=== PATIENT | female | born 1995 | race Caucasian/White ===

== ENCOUNTER 2018-09-29 08:53 | Inpatient (IN) | payer OTHER ==
[2018-09-29] VITALS (20 sets, daily range): BP systolic 96–137; BP diastolic 51–73; PULSE 70–86; RESP 8–21; Ht 157.5 cm; Wt 86.3 kg
[~2018-09-29] VITALS: Ht 157.5 cm; Wt 86.3 kg
[2018-09-29] MEDS ORDERED: ALBU18HF INH (09:30)
[2018-09-29] MEDS ORDERED: CLOB15OI15 TOP (09:30)
[2018-09-29] MEDS ORDERED: CEFAZOLIN 2 GM/50 ML (PMX) 50 ML IVPB ONE (10:00)
[2018-09-29] MEDS ORDERED: SOD CHLORIDE 0.9% 1,000 ML IV ONE (10:00)
--- NOTE | 2018-09-29 12:18 | PREAC ---
Date/Time of Note Date/Time of Note DATE: 09/29/18 TIME: 12:17 Anesthesia Eval and Record Evaluation Time Pre-Procedure Interview DATE: 09/29/18 TIME: 12:17 Age 22 Sex female NPO: 8 hrs Preoperative diagnosis papillary thyroid CA Planned procedure total thyroidectomy Past Medical History Past Medical History: Includes Pulm: Asthma GI: Obesity Surgery & Anesthesia Issues No known issue Meds Anticoagulation: No Beta Otto within 24 hr: No Reason Beta Otto not given: Pt. not on B-Otto Reported Medications Clobetasol Propionate* (Clobetasol Propionate*) 15 Gm Oint, 1 APPLIC TOP PRN, #1 TUB 09/29/18 Albuterol Sulfate* (Ventolin HFA*) 18 Gm Hfa.aer.ad, 2 PUFFS INH Q6 PRN for SHORTNESS OF BREATH 09/29/18 Current Medications Sodium Chloride 1,000 ml @ 75 mls/hr [id number] ONCE IV ; Start 09/29/18 at 10:00; Stop 09/29/18 at 23:19 Meds reviewed: Yes Allergies Coded Allergies: No Known Allergy (Unverified , 09/29/18) Allergies Reviewed: Yes Labs/Studies Labs Reviewed: Reviewed by anesthesiologist test: Negative Pre-procedure Exam Last vitals Vital Signs Date Temp Pulse Resp B/P (MAP) Pulse Ox O2 O2 Flow FiO2 Time Delivery Rate 09/29/18 97.5 73 18 111/73 96 Room Air 10:27 (86) Airway: Adequate mouth opening, Adequate thyromental dist Mallampati: Mallampati II Teeth: Normal Lung: Normal Heart: Normal ASA Physical Status ASA physical status: 2 Emergency: None Planned Anesthetic General/MAC: ETT Pre-operative Attestations Prior to commencing anesthesia and surgery, the patient was re-evaluated, there was verification of: *The patient's identity *The results of appropriate recent lab work and preoperative vital signs *The above evaluation not changing prior to induction *Anesthetic plan, risk benefits, alternative and complications discussed with patient/family; questions answered; patient/family understands, accepts and wishes to proceed. HECTOR RIVERA Sep 29, 2018 12:18
[2018-09-29] MEDS ORDERED: BUPIVACAINE 0.25% (MPF) 30 ML INJ ONE (12:24)
[2018-09-29] MEDS ORDERED: ONDANSETRON 4 MG INJ IV PRN ×2 (12:30→16:30)
[2018-09-29] MEDS ORDERED: METOCLOPRAMIDE 10 MG INJ IV PRN (12:30)
[2018-09-29] MEDS ORDERED: ALBUTEROL 0.083% (NEB) 2.5 MG/3 ML AMP HHN PRN (12:30)
[2018-09-29] MEDS ORDERED: FENTAnyl 50 MCG/ML VIAL IV PRN ×3 (12:30)
[2018-09-29] MEDS ORDERED: DIPHENHYDRAMINE 50 MG INJ IV PRN (12:30)
[2018-09-29] MEDS ORDERED: MEPERIDINE 25 MG INJ IV PRN (12:30)
[2018-09-29] MEDS ORDERED: HYDROmorphONE 1 MG/5 ML IV SYRINGE IV PRN ×3 (12:30)
[2018-09-29] MEDS ORDERED: LIDOCAINE 2% (SDV) 5 ML INJ ONE (12:59)
[2018-09-29] MEDS ORDERED: GLYCOPYRROLATE 0.4 MG INJ ONE (12:59)
[2018-09-29] MEDS ORDERED: SUCCINYLCHOLINE CHLORIDE 100 MG/5 ML SYG IV ONE (12:59)
[2018-09-29] MEDS ORDERED: FENTAnyl 50 MCG/ML VIAL ONE (12:59)
[2018-09-29] MEDS ORDERED: ROCURONIUM 50 MG INJ ONE (14:13)
[2018-09-29] MEDS ORDERED: PROPOFOL 20 ML ONE (14:13)
[2018-09-29] MEDS ORDERED: CEFAZOLIN 1 GM INJ ONE (14:13)
[2018-09-29] MEDS ORDERED: SUGAMMADEX SODIUM 200 MG/2 ML VIAL IV ONE (14:13)
--- NOTE | 2018-09-29 14:29 | OPR ---
Date/Time of Note Date/Time of Note DATE: 09/29/18 TIME: 14:21 Operative Report Procedure Date: Sep 29, 2018 Preoperative Diagnosis thyroid papillary cancer Postoperative Diagnosis same Operation/Procedure Performed 1. 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 localized adjacent tissue transfer with the use of skin flasp 18 sq cm defect of anterior neck 3. therapeutic injection of subcutaneous local anesthesia Surgeon see signature line Front Edger Jonah Rashid Anesthesia Type: general Estimated Blood Loss: 0 - 10 ml's Transfusion none Specimen total thyroid single short right superior double short right lower single long left upper double long left lower Grafts/Implants none Complications none Pt Condition Post Procedure: stable Indications This is a 22-year-old female diagnosed on FNA to the papillary thyroid cancer on the left thyroid nodule. Additionally she has multiple autoimmune diseases including psoriasis and Madai's disease. She is brought to the OR for a total thyroidectomy. Risks alternatives benefits and personal were discussed the patient. Additionally because of her autoimmune disease and high inflammation rate she was told of her increased risk of perioperative morbidity including but not limited to bleeding infection recurrent laryngeal nerve in jury. She expressed understanding and consents to the operation. Procedure Description Patient taken to the OR and prepped and draped in usual sterile fashion. Surgical time was performed. IV antibiotics given. Collar incision was made with a 15 blade. Dissection with cautery was carried through the platysmal muscle. Immediately there was a higher level inflammation in the tissue planes were difficult due to her autoimmune disease of psoriasis and Madai's in particular peak. Due to the Madai's technical access to the thyroid was much more difficult and the dissection was difficult throughout the case and hence this should qualify for a modifier 22. Platysmal flaps were raised superiorly inferiorly and dissection was taken with cautery. Gaitan retractors were placed. The strap muscles were adherent and inflamed.. The strap muscle was divided in the midline and reflected to the left and right again the tissue planes were difficult due to the high inflammation and meticulous dissection was required to take the strap muscles off of the anterior portion of the thyroid tissue. This was done layer by layer in a meticulous fashion. Attention was then paid to the right thyroid lobe. Again here the tissue planes were difficult to dissect out due to the high inflammation and autoimmune disease of Madai's thyroiditis. The right superior pole and right inferior pole was mobilized. LigaSure was used to dissect out and divided the middle thyroid vein. Further dissection was carried out. Due to the high inflammation a subcapsular approach was taken as the thyroid nodule was on the left side. This area was then and reflected anteriorly and taken off the trachea. The retro-is small space was also dissected out bluntly using tonsils and again here meticulous dissection was required and higher level of bleeding was seen in the normal due to the autoimmune inflammation from Madai's disease. Further dissection was carried on the left side. The strap muscles were meticulously reflected off of the thyroid tissue. The nodule was palpable. The superior and inferior poles were identified and mobilized. The left middle thyroidal vein was ligated with handheld LigaSure. Meticulous reflection was performed as the thyroid was elongated in a lateral position and almost into the tracheoesophageal groove. Further dissection was performed and the thyroid was mobilized immediately. Even the dissection off the trachea was difficult as there was an extensive amount of adhesions. This was finally reflected completely off and the thyroid was marked with surgical markings of single short right superior double short right inferior single long left superior double long left inferior. The thyroid specimen was sent. There is no evidence of any central nodes that needed dissection. The surgical site was irrigated with water and a Valsalva maneuver of 40 cm of water was performed. No evidence of any bleeding was seen and irrigation was suctioned out. The strap muscles were then reapproximated the midline with interrupted 3-0 Vicryl. The platysmal superior and inferior flaps by using localization to his transfer with these of skin flaps was closed with interrupted 3-0 Vicryl. Multilayer fashion closure was then performed the skin with interrupted 3-0 Vicryl and running 4-0 Monocryl. Therapeutic subcutaneous local anesthesia was injected throughout the incision site. Dry dressings and Steri-Strips were applied. Abdias SAMAYOA Sep 29, 2018 14:29
[2018-09-29] MEDS ORDERED: HYDROCODONE/APAP (5/325) TAB PO PRN (14:30)
[2018-09-29] MEDS ORDERED: morphine 2 MG INJ IV PRN (14:30)
[2018-09-29] MEDS ORDERED: CEFAZOLIN 2 GM/50 ML (PMX) 50 ML IVPB SCH (14:30)
--- NOTE | 2018-09-29 16:19 | HP ---
Date/Time of Note Date/Time of Note DATE: 09/29/18 TIME: 16:15 Assessment/Plan VTE Prophylaxis SCD applied (from Nsg): Yes Pharmacological prophylaxis: NA/contraindicated Pharm contraindication: surgical contra Lines/Catheters IV Catheter Type (from Nrsg): Saline Lock Assessment/Plan Assessment/Plan -Thyroid papillary cancer, status post total thyroidectomy by Dr. Najera on 09/29/2018. Continue IV fluids and postoperative antibiotic. Continue morphine as needed for pain and Zofran as needed for nausea. Advance diet per surgery. -Madai's thyroiditis -Asthma, albuterol as needed -Psoriasis -Obesity with BMI of 34.8 Further recommendations based on clinical course. Plan of care discussed with Dr. Mendoza. Result Diagram: 09/29/18 1449 09/29/18 1449 Results 24hrs Laboratory Tests Test 09/29/18 14:49 White Blood Count 7.0 Red Blood Count 4.34 Hemoglobin 13.0 Hematocrit 39.4 Mean Corpuscular Volume 90.8 Mean Corpuscular Hemoglobin 30.0 Mean Corpuscular Hemoglobin Concent 33.0 Red Cell Distribution Width 13.0 Platelet Count 301 Mean Platelet Volume 9.4 Immature Granulocytes % 0.300 Neutrophils % 41.7 Lymphocytes % 46.8 Monocytes % 6.6 Eosinophils % 3.9 Basophils % 0.7 Nucleated Red Blood Cells % 0.0 Immature Granulocytes # 0.020 Neutrophils # 2.9 Lymphocytes # 3.3 H Monocytes # 0.5 Eosinophils # 0.3 Basophils # 0.1 Nucleated Red Blood Cells # 0.0 Sodium Level 141 Potassium Level 3.9 Chloride Level 112 H Carbon Dioxide Level 21 Anion Gap 8 Blood Urea Nitrogen 7 Creatinine 0.65 Est Glomerular Filtrat Rate mL/min > 60 Glucose Level 109 Calcium Level 8.5 Total Bilirubin 0.4 Direct Bilirubin 0.00 Indirect Bilirubin 0.4 Aspartate Amino Transf (AST/SGOT) 28 Alanine Aminotransferase (ALT/SGPT) 31 Alkaline Phosphatase 56 Total Protein 6.6 Albumin 3.6 Globulin 3.00 Albumin/Globulin Ratio 1.20 HPI/ROS Admit Date/Time Admit Date/Time Sep 29, 2018 at 08:53 Hx of Present Illness Patient is 22-year-old female with history of Madai's thyroiditis, asthma, psoriasis, eczema and arthritis. Patient was evaluated for enlarged left thyroid nodule and underwent FNA at which revealed papillary thyroid cancer. Patient was evaluated by Dr. Najera and surgical consultation. Patient was brought to the hospital and underwent total thyroidectomy today. Postoperatively patient experiencing significant pain and nausea. Patient is admitted for further evaluation and management. ROS 12 point review of system is negative except for what mentioned in HPI PMH/Family/Social Past Medical History Medical History: other (Madai's thyroiditis, asthma, psoriasis) Medications Current Medications Hydromorphone HCl (Dilaudid) 0.2 mg PACU PRN IV MILD PAIN 1-3; Start 09/29/18 at 12:30; Stop 09/29/18 at 17:00 Hydromorphone HCl (Dilaudid) 0.4 mg PACU PRN IV MOD PAIN 4-6; Start 09/29/18 at 12:30; Stop 09/29/18 at 17:00 Hydromorphone HCl (Dilaudid) 0.6 mg PACU PRN IV SEVERE PAIN 7-10; Start 09/29/18 at 12:30; Stop 09/29/18 at 17:00 Fentanyl (Sublimaze) 25 mcg PACU ORDER PRN IV MILD PAIN 1-3; Start 09/29/18 at 12:30; Stop 09/29/18 at 17:00 Fentanyl (Sublimaze) 50 mcg PACU ORDER PRN IV MOD PAIN 4-6; Start 09/29/18 at 12:30; Stop 09/29/18 at 17:00 Fentanyl (Sublimaze) 75 mcg PACU ORDER PRN IV SEVERE PAIN 7-10; Start 09/29/18 at 12:30; Stop 09/29/18 at 17:00 Ondansetron HCl (Zofran Inj) 4 mg PACU ORDER PRN IV NAUSEA/VOMITING; Start 09/29/18 at 12:30; Stop 09/29/18 at 17:00 Metoclopramide HCl (Reglan) 10 mg PACU ORDER PRN IV NAUSEA/VOMITING; Start 09/29/18 at 12:30; Stop 09/29/18 at 17:00 Albuterol (Proventil 0.083% (Neb)) 2.5 mg PACU ORDER PRN HHN .WHEEZING; Start 09/29/18 at 12:30; Stop 09/29/18 at 17:00 Meperidine HCl (Demerol) 25 mg PACU ORDER PRN IV .RIGORS; Start 09/29/18 at 12:30; Stop 09/29/18 at 17:00 Diphenhydramine HCl (Benadryl) 25 mg PACU ORDER PRN IV .PRURITUS; Start 09/29/18 at 12:30; Stop 09/29/18 at 17:00 Cefazolin Sodium/ Dextrose 50 ml @ 100 mls/hr Q8H IVPB ; Start 09/29/18 at 14:30; Stop 09/30/18 at 14:29 Morphine Sulfate (morphine) 2 mg Q2H PRN IV PAIN LEVEL 6-10; Start 09/29/18 at 14:30 Acetaminophen/ Hydrocodone Bitart ([place] (5/325)) 1 tab Q6H PRN PO PAIN LEVEL 6-10; Start 09/29/18 at 14:30 Lactated Ringer's 1,000 ml @ 100 mls/hr Q10H IV ; Start 09/29/18 at 14:19 Coded Allergies: No Known Allergy (Unverified , 09/29/18) Past Surgical History Past Surgical Hx: no surgical history Family History Significant Family History: cancer (Breast cancer in patient's mother) Social History Alcohol Use: none Smoking Status: Never smoker Drug Use: none Exam/Review of Systems Vital Signs Vitals Vital Signs Date Temp Pulse Resp B/P (MAP) Pulse Ox O2 O2 Flow FiO2 Time Delivery Rate 09/29/18 98.0 14:43 09/29/18 73 18 111/73 96 Room Air 10:27 (86) Exam Constitutional: alert, oriented Head: normocephalic Neck: other (Status post surgery) Respiratory: clear to auscultation Cardiovascular: nl pulses Gastrointestinal: soft, non-tender Musculoskeletal: nl extremities to inspection Extremities: normal pulses GEORGE TURNER Sep 29, 2018 16:19
[2018-09-29] MEDS: LACTATED RINGER'S 1,000 ML IV SCH (16:21)
[2018-09-29] MEDS ORDERED: ALBUTEROL/IPRATROPIUM (NEB) 3 ML AMP HHN PRN (16:30)
[2018-09-29] MEDS: CEFAZOLIN 2 GM/50 ML (PMX) 50 ML IVPB SCH (21:29)
[2018-09-30 00:04] VITALS: BP 99/55; PULSE 84; RESP 18
[2018-09-30] MEDS ORDERED: CALCIUM CARBONATE 1.25 GM TAB PO ONE (02:30)
[2018-09-30] MEDS ORDERED: CA CARBONATE (250 MG/ML PO SYG) PO ONE (03:00)
[2018-09-30] MEDS: LACTATED RINGER'S 1,000 ML IV SCH ×2 (03:10→10:19)
[2018-09-30] MEDS: CEFAZOLIN 2 GM/50 ML (PMX) 50 ML IVPB SCH ×2 (05:32→14:29)
[2018-09-30 07:19] VITALS: BP 98/58; PULSE 78; RESP 20
--- NOTE | 2018-09-30 07:19 | PAC ---
Date/Time of Note Date/Time of Note DATE: 09/30/18 TIME: 07:19 Post-Anesthesia Notes Post-Anesthesia Note Last documented vital signs Vital Signs Date Temp Pulse Resp B/P (MAP) Pulse Ox O2 O2 Flow FiO2 Time Delivery Rate 09/30/18 95 21 02:49 09/30/18 98.1 84 18 99/55 (70) Room Air 00:04 09/29/18 8.0 14:47 Activity: WNL Respiratory function: WNL Cardiovascular function: WNL Mental status: Baseline Pain reasonably controlled: Yes Hydration appropriate: Yes Nausea/Vomiting absent: Yes HECTOR RIVERA Sep 30, 2018 07:19
--- NOTE | 2018-09-30 10:26 | PN ---
Date/Time of Note Date/Time of Note DATE: 09/30/18 TIME: 10:25 Assessment/Plan VTE Prophylaxis Risk score (from Ns)>0 risk: 4 SCD applied (from Ns): Yes Pharmacological prophylaxis: other Lines/Catheters IV Catheter Type (from [facility]): Peripheral IV Urinary Cath still in place: No Assessment/Plan Assessment/Plan s/p total thyroidectomy doing well dc home Result Diagram: 09/30/18 0446 09/30/18 0446 Results 24hrs Laboratory Tests Test 09/29/18 14:49 09/30/18 01:19 09/30/18 04:46 White Blood Count 7.0 10.4 # Red Blood Count 4.34 4.19 L Hemoglobin 13.0 12.6 Hematocrit 39.4 38.1 Mean Corpuscular Volume 90.8 90.9 Mean Corpuscular Hemoglobin 30.0 30.1 Mean Corpuscular Hemoglobin Concent 33.0 33.1 Red Cell Distribution Width 13.0 13.2 Platelet Count 301 316 Mean Platelet Volume 9.4 9.7 Immature Granulocytes % 0.300 0.200 Neutrophils % 41.7 66.3 Lymphocytes % 46.8 25.4 Monocytes % 6.6 6.6 Eosinophils % 3.9 1.0 Basophils % 0.7 0.5 Nucleated Red Blood Cells % 0.0 0.0 Immature Granulocytes # 0.020 0.020 Neutrophils # 2.9 6.9 Lymphocytes # 3.3 H 2.6 Monocytes # 0.5 0.7 Eosinophils # 0.3 0.1 Basophils # 0.1 0.1 Nucleated Red Blood Cells # 0.0 0.0 Sodium Level 141 139 Potassium Level 3.9 3.6 Chloride Level 112 H 107 Carbon Dioxide Level 21 26 Anion Gap 8 6 Blood Urea Nitrogen 7 6 L Creatinine 0.65 0.68 Est Glomerular Filtrat Rate mL/min > 60 > 60 Glucose Level 109 91 Calcium Level 8.5 8.1 L 8.1 L Total Bilirubin 0.4 0.5 Direct Bilirubin 0.00 0.00 Indirect Bilirubin 0.4 0.5 Aspartate Amino Transf (AST/SGOT) 28 41 Alanine Aminotransferase (ALT/SGPT) 31 29 Alkaline Phosphatase 56 48 Total Protein 6.6 6.6 Albumin 3.6 3.5 Globulin 3.00 3.10 Albumin/Globulin Ratio 1.20 1.12 Subjective 24 Hr Interval Summary Free Text/Dictation patient doing well, had some tingling in the hands and calcium was started now those symptoms have resolved Exam/Review of Systems Exam Vitals Vital Signs Date Temp Pulse Resp B/P (MAP) Pulse Ox O2 O2 Flow FiO2 Time Delivery Rate 09/30/18 98.1 78 20 98/58 (71) 98 07:19 09/30/18 21 02:49 09/30/18 Room Air 00:04 09/29/18 8.0 14:47 Intake and Output 09/29/18 09/29/18 09/30/18 1515:00 23:00 07:00 IntakeIntake Total 1100 ml 490 ml 1650 ml OutputOutput Total 10 ml BalanceBalance 1090 ml 490 ml 1650 ml Exam c/d/i Results Results 24hrs Laboratory Tests Test 09/29/18 14:49 09/30/18 01:19 09/30/18 04:46 White Blood Count 7.0 10.4 # Red Blood Count 4.34 4.19 L Hemoglobin 13.0 12.6 Hematocrit 39.4 38.1 Mean Corpuscular Volume 90.8 90.9 Mean Corpuscular Hemoglobin 30.0 30.1 Mean Corpuscular Hemoglobin Concent 33.0 33.1 Red Cell Distribution Width 13.0 13.2 Platelet Count 301 316 Mean Platelet Volume 9.4 9.7 Immature Granulocytes % 0.300 0.200 Neutrophils % 41.7 66.3 Lymphocytes % 46.8 25.4 Monocytes % 6.6 6.6 Eosinophils % 3.9 1.0 Basophils % 0.7 0.5 Nucleated Red Blood Cells % 0.0 0.0 Immature Granulocytes # 0.020 0.020 Neutrophils # 2.9 6.9 Lymphocytes # 3.3 H 2.6 Monocytes # 0.5 0.7 Eosinophils # 0.3 0.1 Basophils # 0.1 0.1 Nucleated Red Blood Cells # 0.0 0.0 Sodium Level 141 139 Potassium Level 3.9 3.6 Chloride Level 112 H 107 Carbon Dioxide Level 21 26 Anion Gap 8 6 Blood Urea Nitrogen 7 6 L Creatinine 0.65 0.68 Est Glomerular Filtrat Rate mL/min > 60 > 60 Glucose Level 109 91 Calcium Level 8.5 8.1 L 8.1 L Total Bilirubin 0.4 0.5 Direct Bilirubin 0.00 0.00 Indirect Bilirubin 0.4 0.5 Aspartate Amino Transf (AST/SGOT) 28 41 Alanine Aminotransferase (ALT/SGPT) 31 29 Alkaline Phosphatase 56 48 Total Protein 6.6 6.6 Albumin 3.6 3.5 Globulin 3.00 3.10 Albumin/Globulin Ratio 1.20 1.12 Medications Medication Current Medications Morphine Sulfate (morphine) 2 mg Q2H PRN IV PAIN LEVEL 6-10; Start 09/29/18 at 14:30 Acetaminophen/ Hydrocodone Bitart ([place] (5/325)) 1 tab Q6H PRN PO PAIN LEVEL 6-10 Last administered on 09/29/18at 21:29; Admin Dose 1 TAB; Start 09/29/18 at 14 :30 Lactated Ringer's 1,000 ml @ 100 mls/hr Q10H IV Last administered on 09/30/18at 03:10; Admin Dose 100 MLS/HR; Start 09/29/18 at 14:19 Ondansetron HCl (Zofran Inj) 4 mg Q4H PRN IV NAUSEA AND/OR VOMITING Last administered on 09/29/18at 16:34; Admin Dose 4 MG; Start 09/29/18 at 16:30 Albuterol/ Ipratropium (Duoneb) 3 ml Q4H RESP THERAPY PRN HHN SHORTNESS OF BREATH; Start 09/29/18 at 16:30 Cefazolin Sodium/ Dextrose 50 ml @ 100 mls/hr Q8 IVPB Last administered on 09/30/18at 05:32; Admin Dose 100 MLS/HR; Start 09/29/18 at 22:00; Stop 09/30/18 at 14:29 Abdias SAMAYOA Sep 30, 2018 10:26
[2018-09-30 14:23] VITALS: BP 111/67; PULSE 76; RESP 18
[2018-09-30] MEDS ORDERED: HYDR-3601 PO (16:30)
[2018-09-30] MEDS ORDERED: LEVO100T8 PO (16:30)
--- NOTE | 2018-10-06 09:50 | DS ---
Date/Time of Note Date/Time of Note DATE: 10/06/18 TIME: 09:49 Discharge Summary Admission/Discharge Info Admit Date/Time Sep 29, 2018 at 08:53 Discharge Date/Time Sep 30, 2018 at 17:33 Patient Condition: Stable Hx of Present Illness Patient is 22-year-old female with history of Madai's thyroiditis, asthma, psoriasis, eczema and arthritis. Patient was evaluated for enlarged left thyroid nodule and underwent FNA at which revealed papillary thyroid cancer. Patient was evaluated by Dr. Najera and surgical consultation. Patient was brought to the hospital and underwent total thyroidectomy today. Postoperatively patien t experiencing significant pain and nausea. Patient is admitted for further evaluation and management. Hospital Course -Thyroid papillary cancer, status post total thyroidectomy by Dr. Najera on 09/29/2018. Continue IV fluids and postoperative antibiotic. Continue morphine as needed for pain and Zofran as needed for nausea. Advance diet per surgery. -Madai's thyroiditis -Asthma, albuterol as needed -Psoriasis -Obesity with BMI of 34.8 Plan of care discussed with Dr. Mendoza. Home Meds Active Scripts Levothyroxine Sodium* (Levothyroxine Sodium*) 100 Mcg Tablet, 100 MCG PO BEFORE BREAKFAST, #30 TAB Prov:GEORGE TURNER 09/30/18 Hydrocodone Bit-Acetaminophen (Hydrocodone Bit-APAP) 5-325MG Tablet, 1 TAB PO Q6H PRN for PAIN LEVEL 6-10, #20 TAB Prov:GEORGE TURNER 09/30/18 Reported Medications Clobetasol Propionate* (Clobetasol Propionate*) 15 Gm Oint, 1 APPLIC TOP PRN, #1 TUB 09/29/18 Albuterol Sulfate* (Ventolin HFA*) 18 Gm Hfa.aer.ad, 2 PUFFS INH Q6 PRN for SHORTNESS OF BREATH 09/29/18 Follow-up Plan Follow-up with Dr. 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 Primary Care Provider Not On Staff Doctor Time spent on discharge: > 30 minutes GEORGE TURNER Oct 06, 2018 09:50
== END 2018-09-30 17:33 | disposition home or self-care (01) | DRG 624 ==
LOC: REC 08:53 → EDSTATUS 09:30 → MS1 16:05
PROVIDERS: ADMIT Surgery; ATTEND Surgery
PROC: 0HX4XZZ Transfer Neck Skin, External Approach (ICD-10-PCS; 2018-09-29)
PROC: 0GTH0ZZ Resection of Right Thyroid Gland Lobe, Open Approach (ICD-10-PCS; 2018-09-29)
PROC: 0GTG0ZZ Resection of Left Thyroid Gland Lobe, Open Approach (ICD-10-PCS; principal; 2018-09-29 12:00)
DX: C73 Malignant neoplasm of thyroid gland (principal); E06.3 Autoimmune thyroiditis; L40.9 Psoriasis, unspecified
CPT/HCPCS: 80048; 80053; 82310; 84703; 85025; 88307; J0690; J2405; J3010; J7030; J7120

== ENCOUNTER → 2018-11-07 | Outpatient (CLI) | payer OTHER ==
[~2018-11-07] MED LIST: ALBU18HF INH; CLOB15OI15 TOP; HYDR-3601 PO; LEVO100T8 PO
== END | disposition home or self-care (01) ==
LOC: NUC 13:02
PROVIDERS: ATTEND Internal Medicine Endocrinology, Diabetes & Metabolism
DX: C73 Malignant neoplasm of thyroid gland (principal)
CPT/HCPCS: 79005; A9517